=== PATIENT | female | born 1935 | race Asian ===

== ENCOUNTER 2016-07-22 14:52 | Emergency (ER) | payer OTHER ==
[~2016-07-22] VITALS: Ht 149.9 cm; Wt 40.8 kg
[~2016-07-22 14:52] MED LIST: ASPIR 8181 M1 PO; BACTRIM DS 800/1 TAB PO; NITRO DUR TD; PROTONIX40 MG PO; VICODIN 5/500 M1 TAB; ZOCOR20 MG PO; ZOFRAN8 MG PO
--- NOTE | 2016-07-22 14:52 | NUR ---
Patient BIBA BLS, transferred to bed 1. RN evaluating patient at bedside.
[2016-07-22 14:53] VITALS: BP 189/90
[2016-07-22] MEDS ORDERED: DIOVAN HCT 12.51 TA1 (14:58)
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
[2016-07-22] MEDS ORDERED: SILVER SULFADIAZINE 1% 50 GM JAR TP ONE (15:25)
[2016-07-22 17:22] VITALS: BP 155/85
--- NOTE | 2016-07-22 17:23 | NUR ---
Patient discharged with v/s stable. Written and verbal after care instructions given and explained. Patient alert, oriented and verbalized understanding of instructions. Wheel Chair Assisted with to car. All questions addressed prior to discharge. ID band removed. Patient advised to follow up with PMD. Rx of SILVER SULFADIAZINE, VICODIN given. Patient educated on indication of medication including possible reaction and side effects. Opportunity to ask questions provided and answered.
== END 2016-07-22 17:23 | disposition home or self-care (01) ==
LOC: MED 14:52
DX: T21.25XA Burn of second degree of buttock, initial encounter (principal); X19.XXXA Contact with other heat and hot substances, initial encounter; Y92.098 Other place in other non-institutional residence as the place of occurrence of the external cause

== ENCOUNTER 2018-05-19 00:21 | Inpatient (IN) | payer OTHER ==
[~2018-05-19] VITALS: Ht 152.4 cm; Wt 54.4 kg
[2018-05-19 00:21] VITALS: BP 133/74
[~2018-05-19 00:21] MED LIST changes: +ASPI81EC98 PO; -ASPIR 8181 M1 PO; -BACTRIM DS 800/1 TAB PO; +HYDR1TAB73; +NITR1PAT TD; -NITRO DUR TD; +ONDA8TAB PO; +PANT40EC PO; -PROTONIX40 MG PO; +SIMV20TA1 PO; +SULF1TAB12 PO; -VICODIN 5/500 M1 TAB; -ZOCOR20 MG PO; -ZOFRAN8 MG PO
--- NOTE | 2018-05-19 00:21 | NUR ---
PT [facility]. TRANSFERED FROM [facility] TO BED 12 WITH VSS.
--- NOTE | 2018-05-19 00:21 | NUR ---
BIB EMS. PRESENTS TO ED WITH DIARREHA AND X1 SYNCOPAL EPPISODE. VSS. A&OX4. NO C/O PAIN AT THIS TIME. ER MD AWARE. CONTINUE TO MONITOR.
[2018-05-19] MEDS ORDERED: NACL 0.9% 1,000 ML IV ONE (01:03)
[2018-05-19] MEDS ORDERED: DOCUSATE SODIUM 100 MG GELCAP PO PRN (02:10)
[2018-05-19] MEDS ORDERED: HYDROcodone/APAP 5/325 MG 1 TAB TAB PO PRN (02:10)
[2018-05-19] MEDS ORDERED: ONDANSETRON 4 MG/2 ML VIAL IM/IVP PRN (02:10)
[2018-05-19] MEDS ORDERED: ACETAMINOPHEN 325 MG TAB PO PRN (02:10)
[2018-05-19 02:16] LABS: APPEARANCE,URINE CLEAR (CLEAR); BLOOD, URINE NEGATIVE (NEGATIVE); COLOR,URINE YELLOW (YELLOW); UGLUCOSE NEGATIVE (NEGATIVE)
[2018-05-19 02:17] LABS: BILIRUBIN,URINE NEGATIVE (NEGATIVE); LEUKOCYTE ESTERASE ,URINE NEGATIVE (NEGATIVE); NITRITE, URINE NEGATIVE (NEGATIVE)
[2018-05-19 02:31] LABS: PROTHROMBIN TIME 10.4 secs (10.8-13.4)
[2018-05-19 02:32] LABS: ANION GAP 12.7 (8-16); CARBON DIOXIDE 28.1 mmol/L (21-32); CHLORIDE 106 mmol/L (98-107); CREATININE 0.9 mg/dL (0.6-1.3); GLUCOSE 114 mg/dL (74-106); POTASSIUM 4.8 mmol/L (3.5-5.1); SODIUM SERUM 142 mmol/L (136-145); UREA NITROGEN, BLOOD 44 mg/dL (7-18)
[2018-05-19 02:33] LABS: RBC,URINE 0-5 (RARE) /HPF (0-5); WBC,URINE 0-5 (RARE) /HPF (0-5)
[2018-05-19 02:34] LABS: URINE AMORPHOUS URATE 3+ /HPF (None Seen)
[2018-05-19 02:40] LABS: ASPARTATE AMINOTRANSFERASE 13 U/L (15-37); TOTAL BILIRUBIN 0.1 mg/dL (0.0-1.0)
--- NOTE | 2018-05-19 02:50 | NUR ---
PT ARRIVED ON UNIT VIA GURNEY WITH ER NURSE. PT IN STABLE CONDITION. PT IS AWAKE AND CALM. RESPIRATIONS ARE EVEN AND UNLABORED. IV ACCES IN R FA 20G. IV IS PATENT AND INTACT. BRUISE NOTED ON R THIGH, DISCOLORATION TO BILATERAL ANKLES, AND LARGE SCAR TO R BUTTOCK. MRSA SWAB COLLECTED. FALL RISK PROTOCOL INITIATED. BOARD UPDATED. BED IS LOCKED, LOW POSITION AND SIDE RAILS UP X2. BED ALARM ON. CALL LIGHT IS WITHIN REACH. WILL CONTINUE TO MONITOR PT.
--- NOTE | 2018-05-19 02:55 | NUR ---
REPORT GIVEN AND CARE TRANSFERED TO [facility] RN ROOM 119A. TRANSFERED VIA GURNEY WITH VSS.
[2018-05-19 03:03] LABS: HEMOGLOBIN 7.6 g/dL (12.0-16.0); LYMPHOCYTES % (AUTO) 7.7 % (20.5-51.1); MEAN CORPUSCULAR HEMOGLOBIN 58 pg (27-31); MEAN CORPUSCULAR HGB CONC 33 g/dL (33-37); MEAN CORPUSCULAR VOLUME 85.3 fL (80-94); MONOCYTES % (AUTO) 3.5 % (1.7-9.3); NEUTROPHILS % (AUTO) 88.3 % (42.2-75.2); PLATELET COUNT (AUTO) 196 K/uL (140-450); RED BLOOD CELL COUNT(AUTO) 2.69 MIL/uL (4.20-5.40); RED CELL DISTRIBUTION WIDTH 17.5 % (11.6-13.7); WHITE BLOOD COUNT (AUTO) 9.5 K/uL (4.8-10.8)
[2018-05-19 03:04] LABS: BASOPHILS % (AUTO) 0.2 % (0.0-2.0); EOSINOPHILS % (AUTO) 0.3 % (0.0-4.0); LYMPHOCYTES # (AUTO) 0.7 K/uL (2.5-16.5); MONOCYTES # (AUTO) 0.3 K/uL (0.8-1.0); NEUTROPHILS # (AUTO) 8.5 K/uL (1.8-7.7)
[2018-05-19] MEDS: NACL 0.9% 1,000 ML IV SCH ×2 (03:30→12:50)
--- NOTE | 2018-05-19 03:30 | NUR ---
ATTEMPTED TO CONTACT PT SON, NO ANSWER.
[2018-05-19 04:00] VITALS: BP 124/49
--- NOTE | 2018-05-19 04:03 | NUR ---
DO NOT KNOW WHAT LANGUAGE PT SPEAKS. UNABLE TO USE INVESTIGATIVE SHOPPER PHONES TO OBTAIN INFORMATION FROM PT. WILL CONTINUE TO CONTACT PT SON.
--- NOTE | 2018-05-19 04:23 | NUR ---
LEFT MESSAGE WITH PT SON TO GIVE ME A CALL BACK. WILL WAIT FOR CALL.
[2018-05-19] MEDS ORDERED: ONDANSETRON 4 MG TAB PO PRN (04:35)
[2018-05-19] MEDS: PANTOPRAZOLE 40 MG TABEC PO SCH (06:02)
--- NOTE | 2018-05-19 06:06 | NUR ---
ADMINISTERED SCHEDULED MEDICATION. PT TOLERATED WELL. NO SIGNS OR SYMPTOMS OF DISTRESS. WILL CONTINUE TO MONITOR.
--- NOTE | 2018-05-19 06:30 | NUR ---
PRORATE CLERK HERE TO TAKE PT FOR CT SCAN.
--- NOTE | 2018-05-19 06:53 | NUR ---
PT BACK FROM CT SCAN.
--- NOTE | 2018-05-19 07:29 | NUR ---
REPORT RECEIVED FROM GEAR DESIGN ENGINEER NURSE, PT SLEEPING QUIETLY, AROUSES EASILY, NO C/O PAIN, ALL SAFETY MEASURES IN PLACE, PLAN OF CARE REVIEWED, WILL CONTINUE TO MONITOR.
--- NOTE | 2018-05-19 07:29 | NUR ---
ENDORSED PT TO DAY SHIFT NURSE FOR CONTINUITY OF CARE. PT IN STABLE CONDITION.
[2018-05-19 08:00] VITALS: BP 141/59
[2018-05-19] MEDS ORDERED: NITROGLYCERIN 0.4 MG/HR PATCH TD SCH (09:00)
[2018-05-19] MEDS: LOSARTAN 25 MG TAB PO SCH ×2 (09:00→09:04)
[2018-05-19] MEDS ORDERED: NON-FORMULARY ITEM (Aspirin (Aspir 81) 81 MG) PO SCH (09:00)
[2018-05-19] MEDS: HYDROCHLOROTHIAZIDE 25 MG TAB PO SCH ×2 (09:00→09:04)
[2018-05-19] MEDS ORDERED: SIMVASTATIN 20 MG TAB PO SCH (09:00)
[2018-05-19] MEDS: ATORVASTATIN 20 MG TAB PO SCH (09:03)
[2018-05-19] MEDS: LACTOBACILLUS RHAMNOSUS GG 1 EACH CAP PO SCH (09:03)
[2018-05-19] MEDS: ECOTRIN 81 MG TABEC PO SCH (09:04)
--- NOTE | 2018-05-19 09:12 | NUR ---
AM MEDS GIVEN, PT KONG PILLS WELL, BP MEDS HELD, DIASTOLIC PRESSURE 46, PT AT BEDSIDE.
--- NOTE | 2018-05-19 09:22 | NUR ---
PATIENT HAS BEEN SCREENED AND CATEGORIZED MODERATE NUTRITION RISK. PATIENT WILL BE SEEN WITHIN 3-5 DAYS OF ADMISSION. 05/21/18 05/23/[address]
[2018-05-19] MEDS ORDERED: NITROGLYCERIN 0.2 MG/HR PATCH TD SCH (09:30)
[2018-05-19] MEDS: SODIUM FERRIC GLUCONATE 125 MG in NACL 0.9% 100 ML IV SCH (10:16)
--- NOTE | 2018-05-19 11:05 | NUR ---
SON AT BEDSIDE, ADDITIONAL HX OBTAINED, PT REFUSES FLU VAC BECAUSE SHE GETS ILL EVERY TIMES SHE GETS FLU SHOT, BUT PT WANTS PNEUMOVAC, WILL NOTIFY .
[2018-05-19 12:00] VITALS: BP 122/46
--- NOTE | 2018-05-19 13:02 | NUR ---
PT KONG LUNCH WELL, DENIES N/V, DENIES ABD PAIN,
[2018-05-19] MEDS ORDERED: PNEUMOCOCCAL VACCINE 23 MCG/0.5 ML VIAL IMVAC PRN (14:35)
[2018-05-19 14:42] LABS: CHOL/HDL RATIO 2.6 (1-4.5); MAGNESIUM 2.3 mg/dL (1.8-2.4); PHOSPHORUS 4.2 mg/dL (2.5-4.9); THYROID STIMULATING HORMONE 3.19 uIU/mL (0.34-3.74)
--- NOTE | 2018-05-19 15:14 | NUR ---
DAUGHTER FILIBERTO AT BEDSIDE, DR MATOS CALLED TO BEDSIDE TO DISCUSS POC.
[2018-05-19 16:00] VITALS: BP 118/45
--- NOTE | 2018-05-19 16:15 | NUR ---
PATIENT PLACED ON BEDPAN REQUESTED, PT ABLE TO ASSIST IN GETTING ON THE WOODY, VOIDED WITHOUT PROBLEM, DAUGHTERS AT BEDSIDE, NO IMMEDIATE NEEDS VOICED AT HTIS TIME, WILL CONTINUE TO MONITOR.
--- NOTE | 2018-05-19 18:10 | NUR ---
PT SITTING UP EATING DINNER, FAMILY AT BEDSIDE, PT DENIES N/V, DENIES ABD PAIN, PT SMILING APPEARS IN NAD, PT AND FAMILY MADE AWARE OF NEED FOR STOOL SAMPLE FOR OB, AND STOOL CULTURE. IVF INFUSING WELL, SITE CLEAR, WILL CONTINUE TO MONITOR.
--- NOTE | 2018-05-19 19:18 | NUR ---
REPORT GIVEN TO DIRECTOR OF ORTHOPEDICS NURSE, PT IN STABLE CONDITION.
--- NOTE | 2018-05-19 19:18 | NUR ---
RECEIVED REPORT FROM MARZENA RN DAYSHIFT NURSE AT BEDSIDE FOR CONTINUITY OF CARE, PT IN STABLE CONDITION.
[2018-05-19 20:00] VITALS: BP 136/50
--- NOTE | 2018-05-19 21:00 | NUR ---
PT IN BED WITH SIDE RAILS UP X2 AND ALL FALLS PRECAUTIONS IN PLACE. PT ASLEEP BUT AWOKEN TO NAME. V/S FOLLOWS T 98.23 P 74 R 18 B/P 136/50 02 98% WITH R/A. RAC 20GUAGE RUNNING N/S AT 60MLS/HR. . PT HAS NO C/O PAIN OR DISTRESS NOTED. PT ASSISTED X1 WITH BED WOODY BUT ONLY URINE, AWAITING A BM FOR STOOL SAMPLE, PT AWARE. FLAGYL HUNG ORDERED.
--- NOTE | 2018-05-19 22:00 | NUR ---
DR. DÍAZ CONSULTED WITH PT AND FAMILY MEMBER DAUGHTER YOUNG OVER THE PHONE AFTER REVIEWING RESULTS OF ECHO CARDIOGRAM.
[2018-05-19] MEDS: metroNIDAZOLE 500 MG/NS PREMIX 100 ML IV SCH (22:14)
[2018-05-20] VITALS: BP 127/38
--- NOTE | 2018-05-20 00:30 | NUR ---
PT IN BED ASLEEP BUT AROUSABLE TO NAME, NO S/S OF PAIN OR DISTRESS AND PT HAD NO C/O VOICED AT THIS TIME. V/S FOLLOWS T 97.7 P 55 R 18 B/P 127/38 02 96 WITH R/A.
--- NOTE | 2018-05-20 01:00 | NUR ---
PT BLOOD TRANSFUSION ENDED AT 2049 AND IV SITE FLUSHED PATENT. FLAGYL GIVEN LATE DUE TO BLOOD TRANSFUSION RUNNING. IBIS GOLDBERG AFTER TRANSFUSION AND RESIDENT MD PRICE MADE AWARE NEW LABS ORDERED AT THIS TIME. PT IN STABLE CONDITION AND V/S FOLLOWS T 97.7 P 57 R 18 B/P 160/58 02 95% WITH R/A. PT IN BED AND REQUESTED USE OF BED WOODY. PT VOIDED ABOUT 400MLS
[2018-05-20 04:00] VITALS: BP 113/35
[2018-05-20] MEDS: NACL 0.9% 1,000 ML IV SCH ×2 (05:34→17:48)
[2018-05-20] MEDS: metroNIDAZOLE 500 MG/NS PREMIX 100 ML IV SCH ×3 (05:35→21:03)
[2018-05-20] MEDS: PANTOPRAZOLE 40 MG TABEC PO SCH (05:39)
--- NOTE | 2018-05-20 07:30 | NUR ---
REPORT GIVEN AT BEDSIDE TO MARZENA RN DAYSHIFT NURSE , PT INSTABLE CONDITION.
[2018-05-20 08:00] VITALS: BP 133/46
[2018-05-20 08:06] LABS: BASOPHILS % (AUTO) 0.3 % (0.0-2.0); EOSINOPHILS # (AUTO) 0.1 K/uL (0-0.4); EOSINOPHILS % (AUTO) 1.7 % (0.0-4.0); LYMPHOCYTES # (AUTO) 1.1 K/uL (2.5-16.5); LYMPHOCYTES % (AUTO) 24.9 % (20.5-51.1); MEAN CORPUSCULAR HEMOGLOBIN 27 pg (27-31); MEAN CORPUSCULAR HGB CONC 31 g/dL (33-37); MEAN CORPUSCULAR VOLUME 87.3 fL (80-94); MONOCYTES # (AUTO) 0.2 K/uL (0.8-1.0); MONOCYTES % (AUTO) 4.9 % (1.7-9.3); NEUTROPHILS # (AUTO) 2.9 K/uL (1.8-7.7); NEUTROPHILS % (AUTO) 68.2 % (42.2-75.2); PLATELET COUNT (AUTO) 129 K/uL (140-450); RED BLOOD CELL COUNT(AUTO) 2.27 MIL/uL (4.20-5.40); RED CELL DISTRIBUTION WIDTH 18.6 % (11.6-13.7); WHITE BLOOD COUNT (AUTO) 4.2 K/uL (4.8-10.8)
[2018-05-20] MEDS: ATORVASTATIN 20 MG TAB PO SCH (08:13)
[2018-05-20] MEDS: LACTOBACILLUS RHAMNOSUS GG 1 EACH CAP PO SCH (08:13)
[2018-05-20] MEDS: LOSARTAN 25 MG TAB PO SCH (08:13)
[2018-05-20] MEDS: ECOTRIN 81 MG TABEC PO SCH (08:13)
[2018-05-20] MEDS: HYDROCHLOROTHIAZIDE 25 MG TAB PO SCH (08:13)
[2018-05-20 08:15] LABS: CARBON DIOXIDE 27.2 mmol/L (21-32); CHLORIDE 111 mmol/L (98-107); CREATININE 0.7 mg/dL (0.6-1.3); GLUCOSE 103 mg/dL (74-106); POTASSIUM 4.2 mmol/L (3.5-5.1); SODIUM SERUM 143 mmol/L (136-145); UREA NITROGEN, BLOOD 14 mg/dL (7-18)
--- NOTE | 2018-05-20 08:19 | NUR ---
DUE MEDS GIVEN, PT KONG PILLS WELL, PT NOW SITTING UP IN BED EATING BREAKFAST, DENIES NAUSEA, WILL CONTINUE TO MONITOR
[2018-05-20] MEDS: SODIUM FERRIC GLUCONATE 125 MG in NACL 0.9% 100 ML IV SCH (09:16)
[2018-05-20 09:22] LABS: HEMATOCRIT 19.8 % (36-48); HEMOGLOBIN 6.2 g/dL (12.0-16.0)
[2018-05-20] MEDS ORDERED: ACETAMINOPHEN EXTRA STRENGTH 500 MG TAB PO SCH (10:00)
--- NOTE | 2018-05-20 10:40 | NUR ---
PT RETURNED FROM CT, DAUGHTER AT BEDSIDE, T&S BEING DRAWN BY FINISH OFF OPERATOR, CONSENT FOR BLOOD TRANSFUSION OBTAINED BY DAUGHTER RITA Antony. PT ASSISTED TO BEDPAN, VOIDING WITHOUT PROBLEM.
--- NOTE | 2018-05-20 11:50 | NUR ---
NEW IV STARTED TO LEFT AC 22G, PT KONG WELL, PT VOIDED IN BEDPAN. DAUGHTER AT BEDSIDE.
--- NOTE | 2018-05-20 11:58 | NUR ---
PER BLOOD BANK, PT HAS ANTIBODY, GETTING PRBC WILL TAKE SOME TIME, DELAY IN TRANSFUSION NOTIFIED TO DR MATOS.
[2018-05-20 12:00] VITALS: BP 118/52
[2018-05-20] MEDS ORDERED: MAGNESIUM CITRATE 300 ML BTL PO PRN (12:05)
[2018-05-20 12:30] LABS: BASOPHILS % (AUTO) 0.3 % (0.0-2.0); EOSINOPHILS # (AUTO) 0.1 K/uL (0-0.4); EOSINOPHILS % (AUTO) 1.5 % (0.0-4.0); HEMATOCRIT 21.1 % (36-48); LYMPHOCYTES # (AUTO) 1.1 K/uL (2.5-16.5); LYMPHOCYTES % (AUTO) 24.1 % (20.5-51.1); MEAN CORPUSCULAR HEMOGLOBIN 27 pg (27-31); MEAN CORPUSCULAR HGB CONC 31 g/dL (33-37); MEAN CORPUSCULAR VOLUME 87.9 fL (80-94); MONOCYTES # (AUTO) 0.2 K/uL (0.8-1.0); MONOCYTES % (AUTO) 4.5 % (1.7-9.3); NEUTROPHILS # (AUTO) 3.2 K/uL (1.8-7.7); NEUTROPHILS % (AUTO) 69.6 % (42.2-75.2); PLATELET COUNT (AUTO) 145 K/uL (140-450); WHITE BLOOD COUNT (AUTO) 4.7 K/uL (4.8-10.8)
[2018-05-20 12:34] LABS: HEMOGLOBIN 6.5 g/dL (12.0-16.0)
[2018-05-20 13:11] LABS: FOLIC ACID 7.8 ng/mL (>3.0)
--- NOTE | 2018-05-20 14:57 | NUR ---
PT RESTING QUIETLY, DENIES PAIN OR DISCOMFORT, DAUGTER AT BEDSDIE
[2018-05-20 16:00] VITALS: BP 135/47
--- NOTE | 2018-05-20 16:00 | NUR ---
VITALS STABLE, PT DENIES PAIN OR DISOCMFRT, DAUGHTER AT BEDSIDE, WILL CONTINUE TO MONITOR.
--- NOTE | 2018-05-20 17:18 | NUR ---
VOIDED IN BEDPAN NO ISSUES VOIDING, WILL CONTINUE TO MONITOR.
--- NOTE | 2018-05-20 18:25 | NUR ---
BLOOD TRANSFUSION STARTED, 2RN VERIFIED WITH DOMINIQUE AND MYSELF, PT AND DAUGHTER EXPLAINED OF POSSIBLE REACTIONS, INSTRUCTED THEM TO NOTIFY STAFF IF ANY S/S OF REACTION.
--- NOTE | 2018-05-20 18:40 | NUR ---
15MIN INTO TRANSFUSION, NO S/S OF REACTIONS NOTED, PT SITTING UP EATING DINNER, DAUGHTER AT BEDSIDE, WILL CONTINUE TO MONITOR.
--- NOTE | 2018-05-20 19:20 | NUR ---
NO S/S OF TRANSFUSTION REACTION NOTED, PT SLEEPING QUIETLY IN NAD, VITALS STABLE, PLEASE SEE TRANSFUSION RECORD. DAUGHTER AT BEDSIDE. WILL ENDORSE TO ONCOMING SHIFT.
--- NOTE | 2018-05-20 19:22 | NUR ---
RECEIVED REPORT AT BEDSIDE FROM MARZENA RN DAYSHIFT NURSE FOR CONTINUITY OF CARE, PT IN STABLE CONDITION.
--- NOTE | 2018-05-20 19:22 | NUR ---
REPORT GIVEN TO DIVISION CHAIR NURSE, PT IN STABLE CONDITION.
[2018-05-20 20:00] VITALS: BP 157/57
--- NOTE | 2018-05-20 20:00 | NUR ---
PT CONTINUES ON BLOOD TRANSFUSION. SHE IS SITTING UP IN BED RESTING WITH EYES CLOSED BUT AROUSABLE TO NAME. V/S FOLLOWS T 97.5 P 62 R 18 B/P 146/42 02 97%. NO S/S OF ANY ADVERSE EFFECTS NOTED.
--- NOTE | 2018-05-20 20:20 | NUR ---
PT CONTINUES ON BLOOD TRANSFUSION NO S/S OF ANY ADVERSE EFFECTS V/S FOLLOWS T 98.0 P 60 R 18 B/P 166/57 02 97% WILL CONTINUE TO CLOSELY MONITOR PT FOR ANY ADVERSE EFFECTS.
[2018-05-20 21:43] LABS: BASOPHILS % (AUTO) 0.2 % (0.0-2.0); EOSINOPHILS # (AUTO) 0.1 K/uL (0-0.4); EOSINOPHILS % (AUTO) 2.3 % (0.0-4.0); HEMATOCRIT 22.9 % (36-48); HEMOGLOBIN 7.3 g/dL (12.0-16.0); LYMPHOCYTES # (AUTO) 1.5 K/uL (2.5-16.5); LYMPHOCYTES % (AUTO) 35.1 % (20.5-51.1); MEAN CORPUSCULAR HEMOGLOBIN 27 pg (27-31); MEAN CORPUSCULAR HGB CONC 32 g/dL (33-37); MEAN CORPUSCULAR VOLUME 84.4 fL (80-94); MONOCYTES # (AUTO) 0.3 K/uL (0.8-1.0); NEUTROPHILS # (AUTO) 2.4 K/uL (1.8-7.7); NEUTROPHILS % (AUTO) 56.4 % (42.2-75.2); PLATELET COUNT (AUTO) 125 K/uL (140-450); RED BLOOD CELL COUNT(AUTO) 2.72 MIL/uL (4.20-5.40); RED CELL DISTRIBUTION WIDTH 19.8 % (11.6-13.7); WHITE BLOOD COUNT (AUTO) 4.3 K/uL (4.8-10.8)
[2018-05-21] VITALS: BP 160/58
--- NOTE | 2018-05-21 02:15 | NUR ---
NEW LABS OF H AND H ARE HGB WENT FROM 6.5 TO 7.3 POST TRANSFUSION AND HEMATOCRIT WENT FROM 21.1 TO 22.9.
[2018-05-21] MEDS: metroNIDAZOLE 500 MG/NS PREMIX 100 ML IV SCH ×2 (05:36→12:19)
[2018-05-21] MEDS: PANTOPRAZOLE 40 MG TABEC PO SCH (05:39)
[2018-05-21 06:27] VITALS: BP 159/55
[2018-05-21 07:17] LABS: CARBON DIOXIDE 25.9 mmol/L (21-32); CHLORIDE 110 mmol/L (98-107); CREATININE 0.7 mg/dL (0.6-1.3); GLUCOSE 98 mg/dL (74-106); POTASSIUM 3.9 mmol/L (3.5-5.1); SODIUM SERUM 142 mmol/L (136-145); UREA NITROGEN, BLOOD 8 mg/dL (7-18)
[2018-05-21 07:18] LABS: BASOPHILS % (AUTO) 0.5 % (0.0-2.0); EOSINOPHILS # (AUTO) 0.1 K/uL (0-0.4); EOSINOPHILS % (AUTO) 3.3 % (0.0-4.0); HEMATOCRIT 24.5 % (36-48); HEMOGLOBIN 7.9 g/dL (12.0-16.0); LYMPHOCYTES # (AUTO) 1.4 K/uL (2.5-16.5); LYMPHOCYTES % (AUTO) 37.7 % (20.5-51.1); MEAN CORPUSCULAR HEMOGLOBIN 27 pg (27-31); MEAN CORPUSCULAR HGB CONC 32 g/dL (33-37); MEAN CORPUSCULAR VOLUME 84.1 fL (80-94); MONOCYTES # (AUTO) 0.2 K/uL (0.8-1.0); MONOCYTES % (AUTO) 5.9 % (1.7-9.3); NEUTROPHILS % (AUTO) 52.6 % (42.2-75.2); PLATELET COUNT (AUTO) 132 K/uL (140-450); RED BLOOD CELL COUNT(AUTO) 2.91 MIL/uL (4.20-5.40); RED CELL DISTRIBUTION WIDTH 20.1 % (11.6-13.7); WHITE BLOOD COUNT (AUTO) 3.8 K/uL (4.8-10.8)
--- NOTE | 2018-05-21 07:30 | NUR ---
REPORT GIVEN TO DAYSHIFT RN AT BEDSIDE FOR CONTINUITY OF CARE, PT IN STABLE CONDITION.
[2018-05-21 08:00] VITALS: BP 166/48
--- NOTE | 2018-05-21 08:00 | NUR ---
PATIENT WAS AWAKE, ALERT. RESPIRATION EVEN, UNLABOR ON ROOM AIR. SKIN DRY AND WARM. IV PATENT AND INTACT. DENIED PAIN AT THIS TIME. NAUSEA EPISODES WERE SEEN. PLAN OF CARE WAS DISCUSSED WITH PATIENT. BED AT LOW POSITION, SIDE RAILS UP. CALL LIGHT WITHIN REACH.
[2018-05-21] MEDS: ATORVASTATIN 20 MG TAB PO SCH (08:38)
[2018-05-21] MEDS: HYDROCHLOROTHIAZIDE 25 MG TAB PO SCH (08:38)
[2018-05-21] MEDS: LACTOBACILLUS RHAMNOSUS GG 1 EACH CAP PO SCH (08:38)
[2018-05-21] MEDS: ECOTRIN 81 MG TABEC PO SCH (08:38)
[2018-05-21] MEDS: LOSARTAN 25 MG TAB PO SCH ×2 (08:39→09:21)
[2018-05-21] MEDS ORDERED: DOCUSATE 100 MG/10 ML UDC GT PRN (09:10)
[2018-05-21] MEDS: SODIUM FERRIC GLUCONATE 125 MG in NACL 0.9% 100 ML IV SCH (09:20)
--- NOTE | 2018-05-21 09:30 | NUR ---
PATIENT AWAKE, ALERT. RESPIRATION EVEN, UNLABOR ON ROOM AIR. MEDS WERE GIVEN PER ORDER. NO DISTRESS NOTED AT THIS TIME
--- NOTE | 2018-05-21 11:36 | NUR ---
PATIENT AWAKE, ALERT. RESPIRATION EVEN, UNLABOR ON ROOM AIR. DENIED PAIN, N/V AT THIS TIME. DENIED BM, WILL MEDICATE PER ORDER. FAMILY AT BEDSIDE, CALL LIGHT WITHIN REACH
[2018-05-21] MEDS: NACL 0.9% 1,000 ML IV SCH (11:37)
[2018-05-21 12:00] VITALS: BP 135/42
[2018-05-21] MEDS ORDERED: DOCUSATE SOD/SENNA 50/8.6 MG 1 TAB PO PRN (13:20)
[2018-05-21] MEDS ORDERED: LACTULOSE 20 GM/30 ML UDC PO SCH (14:00)
--- NOTE | 2018-05-21 14:00 | NUR ---
PATIENT WAS SLEEPING COMFORTABLY. RESPIRATION EVEN, UNLABOR ON ROOM AIR. MED WAS GIVEN PER ORDER. NO DISTRESS NOTED. CALL LIGHT WITHIN REACH
--- NOTE | 2018-05-21 15:57 | NUR ---
PATIENT WAS SLEEPING COMFORTABLY. RESPIRATION EVEN, UNLABOR ON ROOM AIR. DENIED BM AT THIS TIME. DENIED PAIN, N.V. NO DISTRESS NOTED. CALL LIGHT WITHIN REACH
[2018-05-21 16:00] VITALS: BP 158/50
--- NOTE | 2018-05-21 18:49 | NUR ---
PATIENT WAS SLEEPING COMFORTABLY. RESPIRATION EVEN, UNLABOR ON ROOM AIR. IV PATENT AND INTACT. NO DISTRESS NOTED AT THIS TIME
--- NOTE | 2018-05-21 19:28 | NUR ---
ENDORSEMENT GIVEN TO THE TECHNICAL ASSISTANCE CONSULTANT NURSE. PATIENT IS STABLE AT THIS TIME
--- NOTE | 2018-05-21 19:29 | NUR ---
REPORT RECEIVED FROM AM NURSE AT BEDSIDE. PT IN STABLE CONDITION. AAOX4. NO COMPLAINTS OF PAIN. NO SOB. INTRODUCED SELF TO PT. BOARD UPDATED. IV SITE L AC 20G RUNNING NS@60ML/HR PATENT AND INTACT. SKIN WARM, DRY, AND INTACT WITH NO OPEN WOUNDS. BED LOCKED IN LOW POSITION. CALL SMALLS WITHIN REACH. SAFETY PRECAUTIONS IN PLACE.
[2018-05-21 20:00] VITALS: BP 156/60
--- NOTE | 2018-05-21 21:10 | NUR ---
NOEHMI-COLACE GIVEN PO. PT TOLERATED WELL.
--- NOTE | 2018-05-21 23:45 | NUR ---
PT SLEEPING COMFORTABLY. NO S/S OF DISTRESS NOTED. WILL CONTINUE TO MONITOR.
[2018-05-22] VITALS: BP 135/65
--- NOTE | 2018-05-22 02:20 | NUR ---
PT SLEEPING COMFORTABLY LEFT LATERAL. NO S/S OF DISTRESS NOTED. BREATHING UNLABORED, EVEN, AND WNL. NO COMPLAINTS OF PAIN. NO SOB. WILL CONTINUE TO MONITOR.
--- NOTE | 2018-05-22 03:45 | NUR ---
PT SITTING UP IN BED AWAKE AND ALERT WATCHING TV. LINEN CHANGE DONE DUE TO INCONTINENCE. WILL CONTINUE TO MONITOR.
[2018-05-22 04:00] VITALS: BP 183/54
[2018-05-22] MEDS: NACL 0.9% 1,000 ML IV SCH (04:43)
[2018-05-22] MEDS: PANTOPRAZOLE 40 MG TABEC PO SCH (05:49)
--- NOTE | 2018-05-22 05:49 | NUR ---
PROTONIX AND COZAAR GIVEN PO. PT TOLERATED WELL. COZAAR DUE AT 0900. 0400 BLOOD PRESSURE WAS 183/54. WAS NOTIFIED AND NEW ORDER TO GIVE 0900 COZAAR NOW.
[2018-05-22] MEDS ORDERED: SODIUM PHOSPHATE 118 ML ENEM RC SCH (06:40)
[2018-05-22 07:07] LABS: BASOPHILS % (AUTO) 0.5 % (0.0-2.0); EOSINOPHILS # (AUTO) 0.1 K/uL (0-0.4); EOSINOPHILS % (AUTO) 1.7 % (0.0-4.0); HEMATOCRIT 27.4 % (36-48); HEMOGLOBIN 8.9 g/dL (12.0-16.0); LYMPHOCYTES # (AUTO) 0.8 K/uL (2.5-16.5); LYMPHOCYTES % (AUTO) 19.9 % (20.5-51.1); MEAN CORPUSCULAR HEMOGLOBIN 28 pg (27-31); MEAN CORPUSCULAR HGB CONC 33 g/dL (33-37); MEAN CORPUSCULAR VOLUME 85.1 fL (80-94); MONOCYTES # (AUTO) 0.2 K/uL (0.8-1.0); MONOCYTES % (AUTO) 5.6 % (1.7-9.3); NEUTROPHILS # (AUTO) 3.1 K/uL (1.8-7.7); NEUTROPHILS % (AUTO) 72.3 % (42.2-75.2); PLATELET COUNT (AUTO) 136 K/uL (140-450); RED BLOOD CELL COUNT(AUTO) 3.22 MIL/uL (4.20-5.40); RED CELL DISTRIBUTION WIDTH 21.5 % (11.6-13.7); WHITE BLOOD COUNT (AUTO) 4.3 K/uL (4.8-10.8)
--- NOTE | 2018-05-22 07:30 | NUR ---
REPORT GIVEN TO AM NURSE AT BEDSIDE. PT IN STABLE CONDITION.
[2018-05-22 07:42] LABS: ANION GAP 10.4 (8-16); CARBON DIOXIDE 27.8 mmol/L (21-32); CHLORIDE 107 mmol/L (98-107); CREATININE 0.6 mg/dL (0.6-1.3); GLUCOSE 110 mg/dL (74-106); POTASSIUM 4.2 mmol/L (3.5-5.1); SODIUM SERUM 141 mmol/L (136-145); UREA NITROGEN, BLOOD 8 mg/dL (7-18)
--- NOTE | 2018-05-22 07:45 | NUR ---
PATIENT WAS AWAKE, ALERT. RESPIRATION EVEN, UNLABOR ON ROOM AIR. SKIN DRY AND WARM. DENIED PAIN, N/V. NO IV ACCESS AT THIS TIME. OCCULT STOOL WAS COLLECTED. PLAN OF CARE WAS DISCUSSED WITH PATIENT. BED AT LOW POSITION, SIDE RAILS UP. CALL LIGHT WITHIN REACH
[2018-05-22 08:00] VITALS: BP 118/64
[2018-05-22] MEDS ORDERED: MAGNESIUM OXIDE 400 MG TAB PO SCH (08:30)
[2018-05-22] MEDS: LACTOBACILLUS RHAMNOSUS GG 1 EACH CAP PO SCH (08:52)
[2018-05-22] MEDS: ATORVASTATIN 20 MG TAB PO SCH (08:52)
[2018-05-22] MEDS: HYDROCHLOROTHIAZIDE 25 MG TAB PO SCH (08:52)
[2018-05-22] MEDS: ECOTRIN 81 MG TABEC PO SCH (08:53)
[2018-05-22] MEDS ORDERED: LOSARTAN 25 MG TAB PO SCH ×2 (09:00)
--- NOTE | 2018-05-22 09:00 | NUR ---
PATIENT WAS AWAKE, ALERT. RESPIRATION EVEN, UNLABOR ON ROOM AIR. MEDS WERE GIVEN PER ORDER. NEW IV WAS STARTED ON LEFT HAND, PATIENT TOLERATED WELL. NO DISTRESS NOTED AT THIS TIME. CALL LIGHT WITHIN REACH
[2018-05-22 11:48] VITALS: BP 143/65
[2018-05-22] MEDS ORDERED: DOCU-299 PO (11:56)
--- NOTE | 2018-05-22 11:58 | NUR ---
PATIENT AWAKE, ALERT. RESPIRATION EVEN, UNLABOR ON ROOM AIR. DENIED PAIN, N/V. NO DISTRESS NOTED AT THIS TIME. FAMILY AT BEDSIDE. MD WAS AT BEDSIDE. CALL LIGHT WITHIN REACH
--- NOTE | 2018-05-22 12:30 | NUR ---
DISCHARGE INSTRUCTION AND PRESCRIPTIONS WERE GIVEN AND EXPLAINED TO THE PATIENT AND THE SON. PATIENT AND SON VERBALIZED UNDERSTANDING. IV WAS REMOVED, CATHETER INTACT, NO ACTIVE BLEEDING SEEN. TRANSLITERATOR WAS REMOVED. PNEUMONIA VACCINE WAS GIVEN PER ORDER. PATIENT WAS ESCORTED OUT IN WHEELCHAIR BY STAFF. ALL BELONGINGS WERE TAKEN WITH THE PATIENT. PATIENT IS STABLE AT THIS TIME
[2018-05-23] MEDS ORDERED: LOSARTAN 50 MG TAB PO SCH (09:00)
--- NOTE | 2018-05-23 09:02 | NUR ---
LATE ENTRY FOR 05/22/18 1347 CALL PLACED TO [facility] [phone] AND SPOKE WITH ELDON AND INFORMED HER THAT REFERRAL WILL BE FAXED AND INFORMATION FAXED TO [phone]. 05/23/18 HEMANTH FROM PREETHI AT [facility] STATING THAT PT IS SHOWING CURRENTLY ON SERVICE WITH HEALTH SYSTEM.
--- NOTE | 2018-05-23 12:52 | NUR ---
1206 RECEIVED CALL FROM PREETHI AT [facility] AND SHE STATED THAT SHE CONTACTED FAMILY AND AT THIS TIME THEY WOULD PREFER TO REMAIN WITH [facility].
--- NOTE | 2018-05-23 13:16 | NUR ---
CM NOTE I WAS TOLD BY CM DIRECTOR HERMINIA TO FAX CLINICAL PACKET TO [facility]. I FAXED THE INFORMATION TO [facility] [phone]. CONFIRMED WITH MANUEL OF [facility]# [phone] THAT PATIENT HAS BEEN WITH THEM AND THAT THEY ARE SEEING THE PATIENT FOR HOME HEALTH AND THEIR RN IS GOING TO SEE THE PATIENT TODAY.
== END 2018-05-22 12:30 | disposition home health service (06) | DRG 73 ==
LOC: MED 00:21 → MTU 02:11
PROVIDERS: ADMIT General Practice; ATTEND General Practice
PROC: 30233N1 Transfusion of Nonautologous Red Blood Cells into Peripheral Vein, Percutaneous Approach (ICD-10-PCS; principal; 2018-05-20)
PROC: 3E0234Z Introduction of Serum, Toxoid and Vaccine into Muscle, Percutaneous Approach (ICD-10-PCS; 2018-05-22)
DX: G90.9 Disorder of the autonomic nervous system, unspecified (principal); N17.0 Acute kidney failure with tubular necrosis; N39.0 Urinary tract infection, site not specified; A04.9 Bacterial intestinal infection, unspecified; E86.0 Dehydration; I10 Essential (primary) hypertension; K21.9 Gastro-esophageal reflux disease without esophagitis; Z96.649 Presence of unspecified artificial hip joint; D64.9 Anemia, unspecified; E78.5 Hyperlipidemia, unspecified; K44.9 Diaphragmatic hernia without obstruction or gangrene; M48.061 Spinal stenosis, lumbar region without neurogenic claudication; A08.4 Viral intestinal infection, unspecified; Z23 Encounter for immunization; Z90.710 Acquired absence of both cervix and uterus; Z79.899 Other long term (current) drug therapy
CPT/HCPCS: 36415; 70450; 71045; 80048; 80053; 81001; 82272; 82607; 82728; 82746; 83036; 83540; 83605; 83690; 83735; 83880; 84100; 84443; 84484; 85025; 85045; 85610; 85730; 86870; 86886; 86900; 86901; 86920; 87081; 87086; 90732; 93880; 97110; 97116; 97530; 99285; J0696; J2916; J3490; J7030; J7060; P9016; Q0092; Q0163